=== PATIENT | male | born 1970 ===

== ENCOUNTER 2019-09-18 05:47 | Day surgery (SDC) | payer SELFPAY ==
[~2019-09-18 05:47] MED LIST: ACETAMINOP160 MG/5 M PO; ATENOLOL25 MG PO; NORVASC5 M1 PO; [UNRECOGNIZED DRUG - OTHER] PO
[2019-09-18 08:59] VITALS: BP 119/60
== END 2019-09-18 08:49 | disposition home or self-care (01) | DRG 395 ==
LOC: ENDO 05:47 → ORM 07:45 → ENDO 07:45 → ORM 08:15 → ENDO 08:25
PROVIDERS: ATTEND Surgery
PROC: 0DJD8ZZ Inspection of Lower Intestinal Tract, Via Natural or Artificial Opening Endoscopic (ICD-10-PCS; principal; 2019-09-18)
PROC: 0DB48ZX Excision of Esophagogastric Junction, Via Natural or Artificial Opening Endoscopic, Diagnostic (ICD-10-PCS; 2019-09-18)
PROC: 0DB68ZX Excision of Stomach, Via Natural or Artificial Opening Endoscopic, Diagnostic (ICD-10-PCS; 2019-09-18)
PROC: 0DB18ZX Excision of Upper Esophagus, Via Natural or Artificial Opening Endoscopic, Diagnostic (ICD-10-PCS; 2019-09-18)
DX: K64.8 Other hemorrhoids (principal); K20.9 Esophagitis, unspecified; K44.9 Diaphragmatic hernia without obstruction or gangrene; K29.50 Unspecified chronic gastritis without bleeding; I10 Essential (primary) hypertension; Z80.0 Family history of malignant neoplasm of digestive organs; Z11.59 Encounter for screening for other viral diseases